=== PATIENT | male | born 1950 | race Caucasian/White ===

== ENCOUNTER 2016-07-30 05:01 | Inpatient (IN) | payer MEDICARE, OTHER ==
[2016-07-23 09:18] LABS: WBC (NOT ORDERED) (RFLEX) 0 (0-5)
[2016-07-23 09:41] LABS: BASOPHILS 0.2 %; BASOPHILS ABSOLUTE 0.01 10/3/uL (0.0-0.16); EOSINOPHILS 2.4 %; EOSINOPHILS ABSOLUTE 0.15 10/3/uL (0.0-0.53); HEMATOCRIT 39.6 % (40.0-51.0); HEMOGLOBIN 13.3 g/dL (13.6-17.8); IMMATURE GRANULOCYTES 0.5 %; IMMATURE GRANULOCYTES ABSOLUTE 0.03 10/3/uL (0.0-0.11); LYMPHOCYTES 30.2 %; LYMPHOCYTES ABSOLUTE 1.91 10/3/uL (0.67-4.30); MEAN CORPUS HGB CONC 33.6 g/dL (32.0-36.0); MEAN CORPUSCULAR HEMOGLOB 28.7 pg (26.0-34.0); MEAN CORPUSCULAR VOLUME 85.5 fL (80-100); MEAN PLATELET VOLUME 10.9 fL (9.2-13.0); MONOCYTES 11.2 %; MONOCYTES ABSOLUTE 0.71 10/3/uL (0.21-1.20); NEUTROPHILS 55.5 %; NEUTROPHILS ABSOLUTE 3.52 10/3/uL (2.02-8.40); PLATELET COUNT 173 10/3/uL (150-400); RED CELL COUNT 4.63 10/6/uL (4.7-6.1); WHITE BLOOD CELLS 6.3 10/3/uL (4.5-10.5)
[2016-07-23 09:42] LABS: MANUAL DIFF NO %
[2016-07-23 09:50] LABS: PARTIAL THROMBO TIME 29.2 SEC (22.5-37.2)
[2016-07-23 10:00] LABS: A/G RATIO 1.3 (0.7-1.9); ALBUMIN 3.9 G/DL (3.5-5.0); CHLORIDE, SERUM 104 MMOL/L (96-112); CO2 (CARBON DIOXIDE) 29 MMOL/L (24-34); CREATININE 1.04 MG/DL (0.70-1.30); GFR AFRICAN AMERICAN 86 ML/MIN (>=60); GFR NON AFRICAN AMERICAN 74 ML/MIN (>=60); GLOBULIN 2.9 G/DL (2.5-4.1); GLUCOSE, SERUM 132 MG/DL (60-99); POTASSIUM, SERUM 4.1 MMOL/L (3.5-5.3); SGOT(AST) 16 U/L (5-40); SGPT(ALT) 28 U/L (5-65); SODIUM, SERUM 140 MMOL/L (135-148); TOTAL BILIRUBIN 0.4 MG/DL (0-1.2); TOTAL PROTEIN 6.8 G/DL (6.0-8.5)
[2016-07-23 10:01] LABS: ALKALINE PHOSPHATASE 57 U/L (45-117); BUN (BLOOD UREA NITROGEN) 13 MG/DL (6-23)
[2016-07-23 11:10] LABS: ASCORBIC ACID (UR NOT ORDER) NEG (NEG); BILIRUBIN, URINE NEGATIVE (NEG); KETONE, URINE NEGATIVE (NEG); LEUKOCYTE ESTERASE(NOT OR NEG (NEG)
--- NOTE | ~2016-07-30 | OP ---
Record Of Operation [facility] [address] [place]. [address] NAME: SHELL GARNER : 50 STATUS : ADM IN PAT#: [id number] AGE: 66 ADM/REG DATE : 07/30/16 MR#: [id number] REPORT SERV DATE: 07/30/16 DICTATED BY: EDILBERTO CH DATE: 07/30/16 REPORT STATUS : Draft TRANSCRIBED BY: MODL DATE: 07/30/16 DATE OF PROCEDURE: 07/30/2016 PREOPERATIVE DIAGNOSIS: Right failed rotator cuff repairs elsewhere with early rotator cuff arthropathy, external rotation strength deficit. POSTOPERATIVE DIAGNOSIS: Right failed rotator cuff repairs elsewhere with early rotator cuff arthropathy, external rotation strength deficit. PROCEDURE: 1. Right reverse shoulder arthroplasty. 2. Latissimus dorsi transfer. COMPLICATIONS: None. ANESTHESIA: General endotracheal with regional block per Anesthesia. INDICATIONS: This 66-year-old male is known to me. He had several attempts at cuff repairs which failed. 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 We discussed operative intervention in the form of an arthroplasty and we discussed also to evaluate for a latissimus dorsi transfer if this was indicated. IMPLANTS: [employer] BF system. ESTIMATED BLOOD LOSS: 200. FLUIDS: Crystalloid. PROCEDURE IN DETAIL: The patient was induced in supine position. He was taken to the beach- chair position with care to maintain the cervical lordosis. A time-out protocol was enforced. Ancef was administered. The deltopectoral approach was utilized. We made more extensile approach to assess the latissimus. We dissected through copious scar and bursitis around the deltoid. We placed a Sheridan retractor. We released approximately 90% of the pectoralis. We tagged the subscapularis, which was relatively robust and performed a peel technique from the proximal humerus utilizing the to externally rotate the proximal humerus. We then assessed the proximal humerus. There was almost no rotator cuff left on the humeral head whatsoever. Posteriorly, there was a tiny bit of teres minor. We decided that it would be beneficial to proceed with the latissimus dorsi transfer. We made the tunnel up above the area of the axillary nerve. We dissected the latissimus out and tagged it with Ethibond. We dissected medially, carefully lysing any attachments adjacent to the axillary nerve. We were able to palpate the axillary nerve superiorly and inferiorly, and we spent time making sure there were no attachments between that and the latissimus. Record Of Operation [facility] [address] [address] NAME: SHELL GARNER : 50 STATUS : ADM IN PAT#: [id number] AGE: 66 ADM/REG DATE : 07/30/16 MR#: [id number] REPORT SERV DATE: 07/30/16 DICTATED BY: EDILBERTO CH DATE: 07/30/16 REPORT STATUS : Draft TRANSCRIBED BY: DONYA DATE: 07/30/16 We then turned to the humeral head. We made a retroverted cut at 20 degrees. We sized up to a 14 stem and removed excess bone. A Fukuda retractor was then placed. We turned attention to the glenoid. We reamed the glenoid and released circumferentially the capsule protecting the axillary nerve. We over-reamed and placed a 15 mm trabecular metal base plate low on the glenoid with two 40 mm screws with locking mode. The 40 mm glenosphere was impacted and checking it to make sure that it was seated appropriately. We did a trial reduction with a 0 poly which was satisfactory we then. We then came back to the humerus. We passed our passing sutures and made some drill tunnels down in the diaphysis and used a Hebrittanion suture passer to pass FiberWires here. We then passed the latissimus on the other side of the humerus and repaired that actually in neutral. Then, one of the FiberWires was placed around the stem, the stem was then impacted. Final reduction was maintained with a Hemovac drain in place. The subscap was repaired in neutral. Pulsatile lavage and tranexamic acid were utilized. was repaired. Latissimus and subscap were all repaired. The deltopectoral interval was closed with Vicryl. The patient tolerated the procedure well and was taken to the PACU in stable condition. POSTOPERATIVE PLAN: Reverse and latissimus transfer protocol. BSS/MODL Edilberto Ch M.D. / [id number] CC: Edilberto Ch M.D.
[~2016-07-30 05:01] MED LIST: BIOTIN5 MG PO; HYDROCHLOROT25 MG PO; KLONO1 PO; LOTE20 PO; LOTENSIN HCT1 TA2 PO; PERCOCET 7.5/321 TAB PO; PRILO PO; ZOCOR10 PO; ZOCOR40 PO
[2016-07-31 06:30] LABS: HEMOGLOBIN 11.7 g/dL (13.6-17.8)
[2016-07-31 06:31] LABS: BUN (BLOOD UREA NITROGEN) 14 MG/DL (6-23); CALCIUM, SERUM 8.7 MG/DL (8.5-10.4); CHLORIDE, SERUM 103 MMOL/L (96-112); CO2 (CARBON DIOXIDE) 31 MMOL/L (24-34); CREATININE 0.95 MG/DL (0.70-1.30); GFR AFRICAN AMERICAN 96 ML/MIN (>=60); GFR NON AFRICAN AMERICAN 83 ML/MIN (>=60); GLUCOSE, SERUM 141 MG/DL (60-99); POTASSIUM, SERUM 4.3 MMOL/L (3.5-5.3); SODIUM, SERUM 140 MMOL/L (135-148)
[2016-07-31 06:39] LABS: HEMATOCRIT 35.2 % (40.0-51.0)
[2016-07-31] MEDS ORDERED: PR25 PO (13:50)
[2016-07-31] MEDS ORDERED: ASA5GR PO (13:51)
== END 2016-07-31 17:41 | disposition home or self-care (01) | DRG 483 ==
LOC: SDC/OF 05:01 → PACU 11:13 → 1SO 14:26
PROVIDERS: Orthopaedic Surgery Sports Medicine
PROC: 3E0T3CZ (ICD-10-PCS; 2016-07-30)
PROC: 0RRJ00Z Replacement of Right Shoulder Joint with Reverse Ball and Socket Synthetic Substitute, Open Approach (ICD-10-PCS; principal; 2016-07-30 07:00)
DX: M75.121 Complete rotator cuff tear or rupture of right shoulder, not specified as traumatic (principal); E66.01 Morbid (severe) obesity due to excess calories; I10 Essential (primary) hypertension; G47.33 Obstructive sleep apnea (adult) (pediatric); Z68.38 Body mass index [BMI] 38.0-38.9, adult; K21.9 Gastro-esophageal reflux disease without esophagitis
CPT/HCPCS: 36415; 73030-RT; 80048; 80053; 81001; 85014; 85018; 85025; 85610; 85730; 86850; 86900; 86901; 87641; 88305; 88311; 93005; 97116-GP; 97162-GP; A9270-GY; C1713; C1776; J0690; J2250; J2270; J2370; J2405; J2550; J2710; J2795; J3010